=== PATIENT | male | born 1945 | race Caucasian/White ===

== ENCOUNTER 2017-03-07 06:36 | Day surgery (SDC) | payer MEDICARE, OTHER ==
[2017-03-07] VITALS (8 sets, daily range): BP systolic 128–141; BP diastolic 76–90; PULSE 66–70; RESP 18–24; Ht 170.2 cm; Wt 79.0 kg
[~2017-03-07] VITALS: Ht 170.2 cm; Wt 79.0 kg
[~2017-03-07 06:36] MED LIST: AMLO-147 PO; ARIP2TAB8 PO; DOCU-159 PO; GABA100C14 PO; IBUP400T22 PO; METO-448 PO; MIRT15TA5 PO; MULTI PO; OMEG1CAP31 PO; OMEP20CA16 PO; SIMV5TAB50 PO; TAMS0.4C2 PO; VENL-42 PO
--- NOTE | 2017-03-07 07:14 | HPN ---
Date/Time of Note Date/Time of Note DATE: 03/07/17 TIME: 07:14 Interval H&P Admission Note Pt. seen H&P reviewed: No system changes DORIS JAY D.O. Mar 07, 2017 07:14
[2017-03-07] MEDS ORDERED: LIDOCAINE 3.5% GEL TUBE OPER SCH (08:00)
[2017-03-07] MEDS ORDERED: TETRACAINE 0.5% 4 ML OPH OPER SCH ×2 (08:00→11:00)
[2017-03-07] MEDS ORDERED: PREDNISOLONE ACET 1% 5 ML OPH OPER SCH (08:30)
[2017-03-07] MEDS ORDERED: DICLOFENAC 0.1% 2.5 ML OPH OPER SCH ×2 (08:30→11:00)
[2017-03-07] MEDS ORDERED: TROPICAMIDE 0.5% ZFS SCH (08:30)
[2017-03-07] MEDS ORDERED: CYCLOPENTOLATE 2% 2 ML OPH OPER SCH ×2 (08:30→11:00)
[2017-03-07] MEDS ORDERED: MOXIFLOXACIN 0.5% 3 ML OPH OPER SCH ×2 (08:30→11:00)
[2017-03-07] MEDS ORDERED: PHENYLephrine 10% 5 ML OPH OPER SCH ×2 (08:30→11:00)
[2017-03-07] MEDS ORDERED: OMEP10CA4 PO (08:30)
[2017-03-07] MEDS ORDERED: OMEG1CAP31 PO (08:31)
[2017-03-07] MEDS ORDERED: GABA100C14 PO ×2 (08:34→08:35)
[2017-03-07] MEDS ORDERED: TRAM-40 PO (08:37)
[2017-03-07] MEDS ORDERED: DIPH25CA6 PO (08:41)
[2017-03-07] MEDS ORDERED: KEN25O TOP (08:42)
[2017-03-07] MEDS ORDERED: FLUO120C4 TOP (08:43)
[2017-03-07] MEDS ORDERED: MIDAZOLAM 1 MG/ML 2 ML INJ ONE (09:11)
[2017-03-07] MEDS ORDERED: CEFAZOLIN 1 GM INJ ONE ×2 (09:12→09:33)
[2017-03-07] MEDS ORDERED: TRYPAN BLUE 0.5 ML SYG IO ONE (09:12)
[2017-03-07] MEDS ORDERED: LIDOCAINE 2%/EPI 30 ML INJ ONE (09:14)
[2017-03-07] MEDS ORDERED: HYALURONATE/CHONDROITIN 1ML OPH INJ IO ONE (09:15)
[2017-03-07] MEDS ORDERED: HYALURONATE/CHONDROITIN 1ML OPH INJ ONE (09:15)
[2017-03-07] MEDS ORDERED: CARBACHOL 0.01% 1.5 ML OPH INJ ONE (09:15)
[2017-03-07] MEDS ORDERED: EPINEPHrine 1 MG INJ ONE (09:15)
[2017-03-07] MEDS ORDERED: TOBRAMYCIN 0.3% 3.5 GM OPH OINT ONE ×2 (09:15→09:16)
[2017-03-07] MEDS ORDERED: LIDOCAINE 2%/EPI MPF (SDV) 20 ML VIAL INJ ONE (09:15)
[2017-03-07] MEDS ORDERED: NA HYALURONATE/CHONDROITIN 0.5 ML SYG RIGHT EYE ONE (09:15)
[2017-03-07] MEDS ORDERED: NA HYALURONATE/CHONDROITIN 0.5 ML SYG ONE (09:15)
[2017-03-07] MEDS ORDERED: CARBACHOL 0.01% 1.5 ML OPH INJ RIGHT EYE ONE (10:10)
[2017-03-07] MEDS ORDERED: TOBRAMYCIN 0.3% 3.5 GM OPH OINT RIGHT EYE ONE (10:20)
[2017-03-07] MEDS ORDERED: ACETAMINOPHEN 500 MG TAB PO PRN (10:30)
[2017-03-07] MEDS ORDERED: LACTATED RINGER'S 1,000 ML IV SCH (10:39)
--- NOTE | 2017-03-07 10:39 | OPR ---
Date/Time of Note Date/Time of Note DATE: 03/07/17 TIME: 10:35 Operative Report Preoperative Diagnosis Senile hypermature cataract,Rt eye Postoperative Diagnosis Senile hypermature cataract, floppy iris syndrome, Rt.eye Operation/Procedure Performed Cataract extraction via phacoemulsification and intraocular lens implantation, Rt eye Surgeon: DORIS JAY D.O. Estimated Blood Loss: none Grafts/Implants Luis SN60 WF 19.5 D Complications: None DORIS JAY D.O. Mar 07, 2017 10:39
[2017-03-07] MEDS ORDERED: LIDOCAINE 3.5% GEL TUBE OPER ONE (11:00)
[2017-03-07] MEDS ORDERED: TROPICAMIDE 1% 2 ML OPH OPER SCH (11:00)
--- NOTE | 2017-03-07 12:52 | OPR ---
DATE OF OPERATION: 03/07/2017 PREOPERATIVE DIAGNOSIS: Cataract, right eye. POSTOPERATIVE DIAGNOSIS: Senile cataract right eye. OPERATION PERFORMED: Cataract extraction, phacoemulsification and intraocular lens implantation, right eye. SURGEON: Florecita Rouse DO ANESTHESIA: MAC. CONSENT: The patient was explained the nature of his illness, his conditions and possible prognosis and outcomes of different type of treatment. Since the patient's vision is very poor, the patient already had experience of cataract surgery on the left eye with very good outcome with vision 20/20. The patient despite understanding the possibilities of multiple complications, which include but are not limited to infection, bleeding, loss of lens, retinal detachment, increased intraocular pressure, loss of vision and loss of eye, the patient decided to have surgery done. Consent signed and can be found in his chart. DESCRIPTION OF PROCEDURE: The patient was brought to the operating room in stable condition and placed on the operating table in supine position. His right was prepped for cataract surgery in routine sterile technique. A retractor was placed to hold his eyelid, and peripheral incision was done in the temporal area, which was followed by lidocaine preservative free as well as Viscoat. Air bubble was injected which was followed by injection of Trypan blue dye. After 2 seconds it was removed with irrigation/aspiration. Additional Viscoat was injected and then slowly capsulorrhexis was done successfully with cystotome and forceps. After dissection, nucleus moved and rotated. After hemostasis was done the intraocular lens was inserted into the anterior chamber and the nucleus was divided into multiple pieces. Each of the pieces was removed successfully. The iris was very bulky; therefore, constant multiple injections of Viscoat helped. Luis SN60WF lens 90.5 diopter was inserted into posterior chamber. The lens rotated well. The Viscoat was removed with irrigation and aspiration. Air bubble was injected and 1-0 Vicryl suture was placed on the wound. A patch was placed over the closed eyelid and the patient was transferred to the recovery room in stable condition. Dictated By: Florecita Rouse DO /[email or web address] /Document#: [id number]
== END 2017-03-07 14:00 | disposition home or self-care (01) ==
LOC: EDSEX 06:36 → SDS 06:36
PROVIDERS: ATTEND Ophthalmology
DX: H25.9 Unspecified age-related cataract (principal); I10 Essential (primary) hypertension; E78.5 Hyperlipidemia, unspecified; F20.9 Schizophrenia, unspecified; N40.0 Benign prostatic hyperplasia without lower urinary tract symptoms; M81.0 Age-related osteoporosis without current pathological fracture
CPT/HCPCS: 66984; J0171; J0690; J2250; V2632